=== PATIENT | male | born 1990 | race Two or more races ===

== ENCOUNTER 2024-08-14 08:54 | Emergency (ER) | payer OTHER ==
[~2024-08-14] VITALS: Ht 172.7 cm; Wt 99.1 kg
--- NOTE | 2024-08-14 09:28 | ED.PDOC ---
History of Present Illness HPI Comments 30-year-old male presents with a chief complaint of muscle pain s/p GOUT flare- up x onset Wednesday. Patient states that he is having a GOUT flare up that began this past Wednesday and has not resolved even with his medications. Patient mentions that he has been compliant with his medication, Allopurinol, but repo rts that he is having 8/10 pain to his left ankle. No other symptoms or modifying factors present at this time. Chief Complaint: Lower Extremity Time Seen by MD: 09:10 Reviewed Notes: Medications, Allergies Allergies: Coded Allergies: NO KNOWN ALLERGIES (Unverified , 08/14/24) Home Meds Active Scripts Tramadol Hcl (Tramadol Hcl) 50 Mg Tab, 50 MG PO Q8HP PRN for 7 Days, #21 TAB Prov:DEBI ROA MD 08/14/24 Information Source: Patient Mode of Arrival: Ambulatory Severity: Moderate Timing: Hours Duration: Since onset Prehospital treatment: None Past Medical History PAST MEDICAL HISTORY: Gout Surgical History: Denies all surgeries Family History Family History: Reviewed,noncontributory to illness Social History Smoker: Non-Smoker Alcohol: Denies ETOH Use Drugs: Marijuana Lives In: Home Constitutional: denies: chills, diaphoresis, fatigue, fever, malaise, sweats, weakness, others EENTM: denies: blurred vision, double vision, ear bleeding, ear discharge, ear drainage, ear pain, ear ringing, eye pain, eye redness, hearing loss, mouth malika n, mouth swelling, nasal discharge, nose bleeding, nose congestion, nose pain, photophobia, tearing, throat pain, throat swelling, voice changes, others Respiratory: denies: cough, hemoptysis, orthopnea, SOB at rest, shortness of breath, SOB with excertion, stridor, wheezing, others Cardiovascular: denies: chest pain, dizzy spells, diaphoresis, Dyspnea on exertion, edema, irregular heart beat, left arm pain, lightheadedness, palpitations, PND, syncope, others Gastrointestinal: denies: abdomen distended, abdominal pain, blood streaked bowels, constipated, diarrhea, dysphagia, difficulty swallowing, hematemesis, melena, nausea, poor appetite, poor fluid intake, rectal bleeding, rectal pain, vomiting, others Genitourinary: denies: burning, dysuria, flank pain, frequency, hematuria, incontinence, penile discharge, penile sore, pain, testicle pain, testicle swelling, urgency, others Neurological: denies: dizziness, fainting, headache, left sided numbness, left sided weakness, numbness, paresthesia, pre-existing deficit, right sided numbness, right sided weakness, seizure, speech problems, tingling, tremors, weakness, others Musculoskeletal: reports: muscle pain; denies: back pain, gout, joint pain, joint swelling, muscle stiffness, neck pain, others Integumetry: denies: bruises, change in color, change in hair/nails, dryness, laceration, lesions, lumps, rash, wounds, others Allergic/Immunocompromised: denies: Difficulty Healing, Frequent Infections, Hives, Itching, others Hematologic/Lymphatic: denies: anemia, blood clots, easy bleeding, easy bruising, swollen glands, others Endocrine: denies: excessive hunger, excessive sweating, excessive thirst, excessive urination, flushing, intolerance to cold, intolerance to heat, unexplained weight gain, unexplained weight loss, others Psychiatric: denies: anxiety, bipolar disorder, depression, hopeless, panic disorder, schizophrenia, sleepless, suicidal, others All Other Systems: Reviewed and Negative Physical Exam General Appearance: No Apparent Distress HEENT: Normal ENT Inspection, Pharynx Normal, TMs Normal Neck: Full Range of Motion, Non-Tender, Normal, Normal Inspection Respiratory: Chest Non-Tender, Lungs Clear, No Accessory Muscle Use, No Respiratory Distress, Normal Breath Sounds Cardiovascular: No Edema, No JVD, No Murmur, No Gallop, Normal Peripheral Pulses, Regular Rate/Rhythm Breast Exam: Deferred Gastrointestinal: No Organomegaly, Non Tender, No Pulsatile Mass, Normal Bowel Sounds, Soft Genitalia: Deferred Pelvic: Deferred Rectal: Deferred Extremities: No calf tenderness, Normal capillary refill, No pedal edema Musculoskeletal : Location: Left Extremity Location: Ankle Apperance: Limited ROM, Tenderness: Mild Neurologic: Alert, igniter capper II-XII nml as Tested, No Motor Deficits, Normal Affect, Normal Mood, No Sensory Deficits Cerebellar Function: Normal Reflexes: Normal Skin: Dry, Normal Color, Warm Lymphatic: No Adenopathy Was a procedure done? Was a procedure done?: No Differential Dx Considerations may include: Gout left ankle pain, contusion, strain X-Ray, Labs, Meds, VS Vital Signs Date Time Temp Pulse Resp B/P (MAP) Pulse Ox O2 Delivery O2 Flow Rate FiO2 08/14/24 09:50 98.7 104 17 131/94 (106) 96 98.7 08/14/24 09:50 8 17 96 Room Air 08/14/24 09:28 98.2 100 18 153/102 (119) 98 Lab Test 08/14/24 09:00 Range/Units Uric Acid 5.4 3.7-9.2 mg/dL Current Medications Medications (Trade) Dose Ordered Sig/Tori Route Start Time Stop Time Status Last Admin Colchicine (Colcrys) 1.2 mg ONCE ONCE PO 08/14/24 09:30 08/14/24 09:31 DC 08/14/24 09:37 The patient was given colchicine 1.2 mg by mouth The uric acid level came back as negative The patient was being discharged on tramadol The patient will return to the emergency department's the condition worsens The patient understands and agrees with the management. Time of 1ST Reevaluation: 09:40 Reevaluation 1ST: Unchanged Patient Education/Counseling: Diagnosis, Treatment, Prognosis, Need For Follow Up Family Education/Counseling: No Family Present Departure 1 Departure Time of Disposition: 12:06 Impression: Primary Impression: Left ankle pain Qualified Codes: M25.572 - Pain in left ankle and joints of left foot Disposition: 01 HOME / SELF CARE / HOMELESS Condition: Fair e-Prescriptions Tramadol Hcl (Tramadol Hcl) 50 Mg Tab 50 MG PO Q8HP PRN for 7 Days, #21 TAB Prov: DEBI ROA MD 08/14/24 Discharged With: Self Critical Care Note Critical Care Time?: No Stability Stability form required: No Heart Score Heart Score: Heart Score Response (Comments) Value History N/A 0 EKG N/A 0 Age N/A 0 Risk Factors N/A 0 Troponin N/A 0 Total 0 I personally scribed for DEBI ROA MD ([email or web address]) on 08/14/24 at 09:28. Electronically submitted by Chino Wood ([email or web address]). DEBI ROA MD Aug 14, 2024 09:28
[2024-08-14] MEDS: COLCHICINE 0.6 MG CAP PO ONE (09:37)
[2024-08-14] MEDS ORDERED: TRAM50TA2 PO (12:04)
[2024-08-14 12:29] VITALS: BP 142/87; PULSE 89; RESP 17; TEMP 98.7; O2SAT 98
== END 2024-08-14 12:31 | disposition home or self-care (01) ==
LOC: EDBD 08:54 → ER 08:54
DX: M10.9 Gout, unspecified (principal); M25.572 Pain in left ankle and joints of left foot; M79.10 Myalgia, unspecified site; M79.672 Pain in left foot; F12.10 Cannabis abuse, uncomplicated
CPT/HCPCS: 36415; 84550